=== PATIENT | female | born 1965 | race Caucasian/White ===

== ENCOUNTER 2016-08-10 07:59 | Emergency (ER) | payer BC ==
[~2016-08-10] VITALS: Ht 165.1 cm; Wt 57.2 kg
[2016-08-10 08:07] VITALS: TEMP 36.4; Ht 165.1 cm; Wt 57.2 kg
[2016-08-10 08:44] LABS: BASO % 0.5 %; BASO ABS # 0.04 K/uL (0-0.2); COMPLETE YES; EOS % 1.6 %; HEMATOCRIT 43.6 % (37-47); LYMPH ABS # 1.71 K/uL (1.2-3.4); MEAN CELL VOLUME 86.2 fL (80-100); MEAN CORPUSCULAR HEMOGLOBIN 30.6 pg (25-34); MEAN CORPUSCULAR HGB CONC 35.6 g/dl (32-36); MEAN PLATELET VOLUME 11.2 fL (7.4-10.4); MONO % 6.9 %; PLATELET COUNT 241 K/uL (130-400); RED BLOOD COUNT 5.06 M/uL (4.2-5.4); WHITE BLOOD COUNT 8.14 K/uL (4.8-10.8)
--- NOTE | 2016-08-10 08:50 | DIAGNOSTIC IMAGING REPORT ---
CHEST ONE VIEW PORTABLE CLINICAL HISTORY: Chest heaviness. Presyncope. COMPARISON STUDY: No previous studies for comparison. FINDINGS: Lung volumes are normal. The patient is mildly rotated. There is no consolidation. There is no evidence of pulmonary edema. Cardiac size is normal. Mediastinal contours are normal. IMPRESSION: No acute cardiopulmonary findings. Electronically signed by: Wilver Desai M.D. 08/10/2016 8:48 AM Dictated Date/Time: 08/10/2016 8:47 AM
[2016-08-10] MEDS ORDERED: PRAV20TA PO (08:55)
[2016-08-10] MEDS ORDERED: VALS320T PO (08:55)
[2016-08-10] MEDS ORDERED: CHLO1TAB19 PO (08:55)
[2016-08-10] MEDS ORDERED: TPRSR/25 PO (08:55)
[2016-08-10 09:00] LABS: MANUAL MICROSCOPIC REQUIRED? NO; REVIEW REQ? YES; URINE APPEARANCE CLEAR (CLEAR); URINE BILIRUBIN NEG (NEG); URINE COLOR YELLOW; URINE EPITHELIAL CELL AUTO 20-30 /lpf (0-5); URINE NITRITE NEG (NEG); URINE PH 8.5 (4.5-7.5); URINE SPECIFIC GRAVITY 1.007 (1.000-1.030); UROBILINOGEN NEG (NEG)
[2016-08-10 09:01] LABS: SULFASALICYLIC ACID POS (NEG)
[2016-08-10 09:13] LABS: ALT/SGPT 29 U/L (12-78); BLOOD UREA NITROGEN 15 mg/dl (7-18); BUN/CREATININE RATIO 13.3 (10-20); CALCIUM 9.6 mg/dl (8.5-10.1); CARBON DIOXIDE 25 mmol/L (21-32); CHLORIDE 96 mmol/L (98-107); GLUCOSE 106 mg/dl (70-99); POTASSIUM 3.2 mmol/L (3.5-5.1); SODIUM 134 mmol/L (136-145)
[2016-08-10 09:17] LABS: ALB/GLOB RATIO 1.4 (0.9-2); ALKALINE PHOSPHATASE 75 U/L (45-117); AST/SGOT 23 U/L (15-37); ZZUR CULT IF INDIC CLEAN CATCH YES
[2016-08-10 09:33] LABS: PREG INTERNAL NEGATIVE QC NEG CLEAR BACKGROUND; PREG INTERNAL POSITIVE QC POS CONTROL LINE
[2016-08-10 10:57] VITALS: BP 121/99; PULSE 66; O2SAT 99
--- NOTE | 2016-08-10 11:23 | EMERGENCY ROOM VISIT NOTE ---
History First contact with patient: 08:14 Chief Complaint: DIZZY Stated Complaint: ON MEDS FOR HBP-FEELIGN FAINT, DIZZY, HANDS TINGLI Nursing Triage Summary: Patient c/o dizziness, feeling like she's going to pass out, feeling clammy, hands tingly, chest heaviness since 0600 this morning. States her pressure was low. Take BP medication. History of Present Illness The patient is a 51 year old female who presents to the Emergency Room with complaints of lightheadedness and dizziness. The patient reports that she started a new blood pressure medication last week. She reports that 4 or 5 days ago, she developed intermittent lightheadedness and dizziness. The patient reports that the symptoms are resolved, but returned this morning. She states she was walking downstairs to get a glass of water when she felt clammy and had some tunnel vision. She states the symptoms lasted approximately 10 seconds and then resolved. She called her art dealer's office and was told to come here for evaluation. She states that she took her blood pressure at home and it was 100/70, which is low for her. She denies any significant symptoms at this time. She does state that her chest feels slightly heavy. She denies any cardiac history other than hypertension. She denies any shortness of breath, recent illness, nausea, vomiting or urinary symptoms. Review of Systems A complete 10-point Review of Systems was discussed with the patient, with pertinent positives and negatives listed in the History of Present Illness. All remaining Review of Systems questions can be considered negative unless otherwise specified. Social History Smoking Status: Never Smoker Current/Historical Medications Scheduled Chlorpromazine Hcl (Thorazine), 25 MG PO DAILY Metoprolol Succinate (Metoprolol Succinate ER), Unknown Dose PO DAILY Pravastatin (Pravachol ), Unknown Dose PO DAILY Valsartan (Diovan), 320 MG PO DAILY Allergies Coded Allergies: Amlodipine (Verified Allergy, Intermediate, rash, 08/10/16) Dedra Oil (Verified Allergy, Intermediate, rash, 08/10/16) Physical Exam Vital Signs Date Time Temp Pulse Resp B/P Pulse Ox O2 Delivery O2 Flow Rate FiO2 08/10/16 10:57 66 18 121/99 99 Room Air 08/10/16 09:26 64 18 135/89 92 Room Air 71 134/91 84 114/94 08/10/16 09:17 71 18 130/86 99 Room Air 08/10/16 08:07 36.4 79 18 130/87 100 Room Air Physical Exam VITALS: Vitals are noted on the nurse's note and reviewed by myself. Vital signs stable. GENERAL: This is a 51-year-old female, in no acute distress, nondiaphoretic, well-developed well-nourished. SKIN: Capillary reflex less than 2 seconds. HEENT: Normocephalic. PERRLA. EOMI. Nares patent. Mucous membranes moist. Neck is supple without nuchal rigidity. HEART: Regular rate and rhythm without murmurs gallops or rubs. LUNGS: Clear to auscultation bilaterally without wheezes, rales or rhonchi. No retractions or accessory muscle use. ABDOMEN: Positive bowel sounds x 4. Soft, nontender. MUSCULOSKELETAL: No gross musculoskeletal defects. No pedal edema. No calf tenderness. NEURO: Patient was alert and oriented to person place and time. No focal neurological deficits. Medical Decision & Procedures ER Provider Diagnostic Interpretation: CHEST ONE VIEW PORTABLE CLINICAL HISTORY: Chest heaviness. Presyncope. COMPARISON STUDY: No previous studies for comparison. FINDINGS: Lung volumes are normal. The patient is mildly rotated. There is no consolidation. There is no evidence of pulmonary edema. Cardiac size is normal. Mediastinal contours are normal. IMPRESSION: No acute cardiopulmonary findings. Laboratory Results 08/10/16 08:30 Red Blood Count 5.06, Mean Corpuscular Volume 86.2, Mean Corpuscular Hemoglobin 30.6, Mean Corpuscular Hemoglobin Concent 35.6, Mean Platelet Volume 11.2, Neutrophils (%) (Auto) 70.0, Lymphocytes (%) (Auto) 21.0, Monocytes (%) (Auto) 6.9, Eosinophils (%) (Auto) 1.6, Basophils (%) (Auto) 0.5, Neutrophils # (Auto) 5.70, Lymphocytes # (Auto) 1.71, Monocytes # (Auto) 0.56, Eosinophils # (Auto) 0.13, Basophils # (Auto) 0.04 08/10/16 08:30 Test 08/10/16 08:30 White Blood Count 8.14 K/uL (4.8-10.8) Red Blood Count 5.06 M/uL (4.2-5.4) Hemoglobin 15.5 g/dL (12.0-16.0) Hematocrit 43.6 % (37-47) Mean Corpuscular Volume 86.2 fL (80-100) Mean Corpuscular Hemoglobin 30.6 pg (25-34) Mean Corpuscular Hemoglobin Concent 35.6 g/dl (32-36) Platelet Count 241 K/uL (130-400) Mean Platelet Volume 11.2 fL (7.4-10.4) Neutrophils (%) (Auto) 70.0 % Lymphocytes (%) (Auto) 21.0 % Monocytes (%) (Auto) 6.9 % Eosinophils (%) (Auto) 1.6 % Basophils (%) (Auto) 0.5 % Neutrophils # (Auto) 5.70 K/uL (1.4-6.5) Lymphocytes # (Auto) 1.71 K/uL (1.2-3.4) Monocytes # (Auto) 0.56 K/uL (0.11-0.59) Eosinophils # (Auto) 0.13 K/uL (0-0.5) Basophils # (Auto) 0.04 K/uL (0-0.2) RDW Standard Deviation 41.1 fL (36.4-46.3) RDW Coefficient of Variation 13.1 % (11.5-14.5) Immature Granulocyte % (Auto) 0.0 % Immature Granulocyte # (Auto) 0.00 K/uL (0.00-0.02) Urine Color YELLOW Urine Appearance CLEAR (CLEAR) Urine pH 8.5 (4.5-7.5) Urine Specific [place] 1.007 (1.000-1.030) Urine Protein 1+ (NEG) Urine Glucose (UA) NEG (NEG) Urine Ketones NEG (NEG) Urine Occult Blood NEG (NEG) Urine Nitrite NEG (NEG) Urine Bilirubin NEG (NEG) Urine Urobilinogen NEG (NEG) Urine Leukocyte Esterase NEG (NEG) Urine WBC (Auto) 1-5 /hpf (0-5) Urine RBC (Auto) 0-4 /hpf (0-4) Urine Hyaline Casts (Auto) 1-5 /lpf (0-5) Urine Epithelial Cells (Auto) 20-30 /lpf (0-5) Urine Bacteria (Auto) 1+ (NEG) Urine Pathogenic Casts /lpf (0) Urine Test NEG (NEG) Anion Gap 13.0 mmol/L (3-11) Est Creatinine Clear Calc Drug Dose 53.8 ml/min Estimated GFR () 66.8 Estimated GFR (Non- 57.7 BUN/Creatinine Ratio 13.3 (10-20) Calcium Level 9.6 mg/dl (8.5-10.1) Total Bilirubin 0.7 mg/dl (0.2-1) Aspartate Amino Transf (AST/SGOT) 23 U/L (15-37) Alanine Aminotransferase (ALT/SGPT) 29 U/L (12-78) Alkaline Phosphatase 75 U/L (45-117) Troponin I < 0.015 ng/ml (0-0.045) Total Protein 7.8 gm/dl (6.4-8.2) Albumin 4.5 gm/dl (3.4-5.0) Globulin 3.3 gm/dl (2.5-4.0) Albumin/Globulin Ratio 1.4 (0.9-2) ECG Rate (beats per minute): 67 Rhythm: normal sinus Findings: no acute ischemic change, no ectopy Comparison ECG Date: no prior available Medical Decision Differential diagnosis includes orthostatic hypotension, acute coronary syndrome , pulmonary embolism, pneumothorax, pericarditis, myocarditis, endocarditis, anxiety, musculoskeletal pain, GERD, costochondritis, among others. The patient was evaluated as above. Labs were drawn and IV access was obtained. Imaging studies were performed and read by radiology as above. The patient was reassessed multiple times during their stay in the emergency department and remained in stable condition. The patient is a 51-year-old female who presents today complaining of lightheadedness and a presyncopal episode. The patient's orthostatic vital signs were mildly positive. Labs revealed no leukocytosis, anemia or concerning electrolyte abnormalities. Troponin was not elevated. Urinalysis was not suggestive of infection. EKG was interpreted by myself and showed a normal sinus rhythm without any evidence of ischemia or ectopy. And do feel that the patient's symptoms were likely due to orthostatic hypotension, which may be caused by the patient's new blood pressure medication. She was encouraged to follow-up closely with her primary care provider and art dealer regarding this and for any medication changes. She will return for any worsening of her symptoms or new/concerning symptoms. Based on the patient's presentation, lab results, and imaging studies, I feel the patient is stable for outpatient treatment. The patient's case was reviewed with Dr. Felipe, ED attending physician, who agreed with my assessment and treatment plan. Discharge instructions were reviewed with the patient. The patient verbalized understanding of my assessment and treatment plan and was discharged home in good condition. Impression Primary Impression: Pre-syncope Departure Information Dispostion Home / Self-Care Condition GOOD Referrals Ruby Gonzalez PA-C (PCP) Pancho Granger, DO Patient Instructions My [facility] Additional Instructions You have been treated in the Emergency Department for your dizziness and lightheadedness. Laboratory results and Imaging Studies have ruled out any cardiac or pulmonary cause of your symptoms. Call your art dealer today to schedule follow-up about possible medication changes. You should schedule a follow-up appointment with your Primary Care Provider in 2 -3 days for further evaluation from today's Emergency Department visit. Return to the Emergency Department if your current symptoms worsen despite treatment course outlined above, or if you develop any of the following symptoms : Chest pain, shortness of breath, worsening dizziness/lightheadedness or any other new/concerning symptoms.
== END 2016-08-10 11:34 | disposition home or self-care (01) ==
LOC: C.EDB 08:01 → C.EDA 11:34
DX: R55 Syncope and collapse (principal); Z79.899 Other long term (current) drug therapy; Z88.8 Allergy status to other drugs, medicaments and biological substances; Z91.09 Other allergy status, other than to drugs and biological substances

== ENCOUNTER → 2017-11-18 | Outpatient (CLI) | payer OTHER ==
[~2017-11-18] MED LIST: CHLO1TAB19 PO; PRAV20TA PO; TPRSR/25 PO; VALS320T PO
--- NOTE | 2017-11-21 07:48 | MAMMOGRAPHY REPORT ---
BILATERAL DIGITAL SCREENING MAMMOGRAM TOMOSYNTHESIS WITH CAD: 11/18/2017 CLINICAL HISTORY: Routine screening. TECHNIQUE: Breast tomosynthesis in addition to standard 2D mammography was performed. Current study was also evaluated with a Computer Aided Detection (CAD) system. COMPARISON: Comparison is made to exams dated: 03/04/2016 mammogram, 01/30/2013 mammogram, 01/24/2012 [facility], 01/20/2011 mammogram - [facility], and 01/16/2010 mammogram - [facility] . BREAST COMPOSITION: The tissue of both breasts is heterogeneously dense, which may obscure small mas ses. FINDINGS: There are possible faint calcifications within the left lateral breast on the cc view, for which spot magnification views are recommended for further evaluation. The remainder of both breasts are stable compared to prior exams, without suspicious masses, calcific ations, or areas of architectural distortion noted. IMPRESSION: ACR BI-RADS CATEGORY 0: INCOMPLETE EVALUATION: NEED ADDITIONAL IMAGING EVALUATION Left breast calcifications, for which additional imaging evaluation is recommended. The patient will be called to schedule an appointment. Approximately 10% of breast cancers are not detected with mammography. A negative mammographic report should not delay biopsy if a clinically suggestive mass is present. Esther Egan M.D. ah/:11/18/2017 16:58:30 Band Aid Machine Operator: Mckenna PATEL(Sandra)(Talha), [facility] letter sent: Addl Imaging 0 BI-RADS Code: ACR BI-RADS Category 0: Incomplete Evaluation: Need Additional Imaging Evaluation
== END | disposition home or self-care (01) ==
LOC: C.MAMM 10:22
PROVIDERS: ATTEND Physician Assistant
DX: Z12.31 Encounter for screening mammogram for malignant neoplasm of breast (principal); R92.1 Mammographic calcification found on diagnostic imaging of breast

== ENCOUNTER → 2017-11-24 | Outpatient (CLI) | payer OTHER ==
--- NOTE | 2017-11-24 12:41 | MAMMOGRAPHY REPORT ---
UNILATERAL LEFT DIGITAL DIAGNOSTIC MAMMOGRAM: 11/24/2017 CLINICAL HISTORY: Callback from screening mammogram for possible left breast calcifications. TECHNIQUE: Spot magnification left CC and ML views were obtained. COMPARISON: Comparison is made to exams dated: 11/18/2017 mammogram, 03/04/2016 mammogram, 01/30/2013 [facility]ogram, 01/24/2012 mammogram, 01/20/2011 mammogram - [facility], and 01/16/2010 mammog derrek - [facility] Antoni Avila. BREAST COMPOSITION: The tissue of the left breast is heterogeneously dense, which may obscure small masses. FINDINGS: Spot magnification views of the left breast demonstrate 3-4 possible very faint punctate ca lcifications within the left superior breast on the ML view, possibly located in the lateral breast on the cc view although they are not definitively visualized on the cc view. The calcifications are extremely faint on both the full-field and magnification views and therefore it is difficult to mukul re to the prior exams although the calcifications were likely present on the MLO view from the 2016 e xam. The calcifications are probably benign and recommend a short interval follow-up in 6 months. IMPRESSION: ACR-BI-RADS CATEGORY 3: PROBABLY BENIGN Three to four possible faint punctate calcifications in the left upper outer quadrant. The calcifica tions are probably benign and recommend follow-up diagnostic tomosynthesis mammograms of the left jocelyne ast in 6 months to confirm stability on magnification views. The patient has been verbally notified of the results. Approximately 10% of breast cancers are not detected with mammography. A negative mammographic report should not delay biopsy if a clinically suggestive mass is present. Esther Egan M.D. ah/:11/24/2017 09:02:44 Optical Design Engineer: Marichuy PATEL(Sandra)(M), [facility] letter sent: Follow Up Recommended 3 BI-RADS Code: ACR-BI-RADS Category 3: Probably Benign
== END | disposition home or self-care (01) ==
LOC: C.MAMM 08:18
PROVIDERS: ATTEND Physician Assistant
DX: R92.8 Other abnormal and inconclusive findings on diagnostic imaging of breast (principal)